=== PATIENT | male | born 1985 | race Caucasian/White ===

== ENCOUNTER 2019-08-30 14:31 | Emergency (ER) | payer SELFPAY ==
[2019-08-30] MEDS ORDERED: ONDANSETRON 4 MG/2 ML VIAL ONE (14:46)
[2019-08-30] MEDS ORDERED: NA CHLORIDE 0.9% 1,000 ML ONE (14:46)
[2019-08-30] MEDS ORDERED: FENTANYL CITR 100 MCG/2 ML ONE ×2 (14:46→15:44)
[2019-08-30 14:56] LABS: Absolute Lymphocytes (CBC) 1.6 K/uL (0.7-4.9); Basophils % 0.8 % (0-1.3); Hematocrit 44.7 % (39.6-49.0); Lymphocytes % 14.5 % (15.3-44.8); MPV 8.4 fL (7.6-11.3)
[2019-08-30 15:08] LABS: Potassium 4.2 mmol/L (3.5-5.1)
--- NOTE | 2019-08-30 15:31 | RAD REPORT ---
EXAM DESCRIPTION: RAD - Tib Fib Right - 08/30/2019 2:51 pm CLINICAL HISTORY: crush injury COMPARISON: No comparisons FINDINGS: No fracture is identified. There is no dislocation or periosteal reaction noted. No acute or suspicious bony finding. No foreign body seen. Anterior soft tissue swelling is present. Calf appears edematous as well. This could be edema, hemorrhage or a combination. No clearly defined hematoma seen. IMPRESSION: No acute bone or joint finding. Prominent soft tissues in the calf and anterior mid leg from edema, hemorrhage or a combination.
--- NOTE | 2019-08-30 15:35 | EDPHYS ---
Physician Documentation [facility] Name: Uriel Olvera Age: 33 yrs Sex: Male : 1985 Arrival Date: 08/30/2019 Time: 14:33 Bed 20 Private MD: ED Physician Darrick Crain HPI: 08/29 15:11 This 33 yrs old Male presents to ER via Ambulatory with complaints of Leg la1 Injury. 15:11 The patient presents with pain, swelling, tenderness. The complaints affect the lateral la1 aspect of right calf, right calf, medial aspect of right calf and right mccollum. Context: The problem was sustained at work, resulted from a crush injury, from a heavy object, from industrial equipment, the patient is not able to bear weight, the patient is not able to ambulate. Onset: The symptoms/episode began/occurred at 14:00. Modifying factors: The symptoms are alleviated by nothing. the symptoms are aggravated by movement, weight bearing, bending knee. Associated signs and symptoms: Pertinent positives: calf tenderness, swelling, weakness. Treatment prior to arrival includes: no previous treatment. Severity of symptoms: At their worst the symptoms were moderate. The patient has not experienced similar symptoms in the past. pt had RLE crushed by 2 [id number] pound pipes. denies any other injuries. Historical: - Allergies: 14:45 Sulfa (Sulfonamide Antibiotics); jl7 - Home Meds: 14:45 None [Active]; jl7 - PMHx: 14:45 None; jl7 - PSHx: 14:45 Left wrist; jl7 - Immunization history: Last tetanus immunization: > 10 years ago. - Social history:: Smoking status: Patient reports the use of cigarette tobacco products, smokes one pack cigarettes per day. ROS: 15:12 Constitutional: Negative for fever, chills, and weight loss, Cardiovascular: Negative la1 for chest pain, palpitations, and edema, Respiratory: Negative for shortness of breath, cough, wheezing, and pleuritic chest pain, Abdomen/GI: Negative for abdominal pain, nausea, vomiting, diarrhea, and constipation, Back: Negative for injury and pain. 15:12 Skin: Negative for injury, rash, and discoloration, Neuro: Negative for headache, weakness, numbness, tingling, and seizure. 15:12 MS/extremity: Positive for pain, swelling, tenderness, of the right calf. Exam: 15:21 Constitutional: This is a well developed, well nourished patient who is awake, alert, la1 and in no acute distress. Head/Face: Normocephalic, atraumatic. Eyes: Pupils equal round and reactive to light, extra-ocular motions intact. Lids and lashes normal. Conjunctiva and sclera are non-icteric and not injected. Cornea within normal limits. Periorbital areas with no swelling, redness, or edema. Chest/axilla: Normal chest wall appearance and motion. Nontender with no deformity. No lesions are appreciated. Cardiovascular: Regular rate and rhythm with a normal S1 and S2. Respiratory: Lungs have equal breath sounds bilaterally, clear to auscultation Abdomen/GI: Soft, non-tender, with normal bowel sounds. Skin: Warm, dry with normal turgor. Normal color with no rashes, no lesions, and no evidence of cellulitis. 15:21 Musculoskeletal/extremity: Extremities: grossly normal except: noted in the right calf: swelling, tenderness, ROM: intact in all extremities, Pulses: noted to be 3+ in the left dorsalis pedis artery, noted to be 2+ in the right dorsalis pedis artery, Sensation intact. Compartment Syndrome exam of affected extremity: severe pain, with passive ROM, weak pulse. 15:21 Musculoskeletal/extremity: significant swelling to RLE. 15:21 Skin: Appearance: Color: normal in color, pink, Temperature: normal temperature, Moisture: normal moisture. Vital Signs: 14:38 BP 136 / 96; Pulse 84; Resp 16 S; Temp 98.4(O); Pulse Ox 95% on R/A; Weight 90.72 kg jl7 (R); Height 6 ft. 1 in. (185.42 cm) (R); Pain 7/10; 14:50 BP 125 / 87; Pulse 81; Resp 16 S; Pulse Ox 95% on R/A; jl7 15:00 BP 120 / 79; Pulse 81; Resp 16 S; Pulse Ox 95% on R/A; jl7 15:15 BP 116 / 85; Pulse 80; Resp 16; Pulse Ox 95% ; Pain 3/10; jl7 15:30 BP 129 / 86; Pulse 68; Resp 16 S; Pulse Ox 95% on R/A; Pain 7/10; jl7 14:38 Body Mass Index 26.39 (90.72 kg, 185.42 cm) jl7 Bethesda Coma Score: 14:38 Eye Response: spontaneous(4). Verbal Response: oriented(5). Motor Response: obeys jl7 commands(6). Total: 15. Trauma Score (Adult): 14:38 Eye Response: spontaneous(1); Verbal Response: oriented(1); Motor Response: obeys jl7 commands(2); Systolic BP: > 89 mm Hg(4); Respiratory Rate: 10 to 29 per min(4); Bethesda Score: 15; Trauma Score: 12 15:00 Eye Response: spontaneous(1); Verbal Response: oriented(1); Motor Response: obeys jl7 commands(2); Systolic BP: > 89 mm Hg(4); Respiratory Rate: 10 to 29 per min(4); Bethesda Score: 15; Trauma Score: 12 MDM: 14:39 Patient medically screened. la1 15:24 ED course: concerned for early compartment syndrome, pain with active and passive ROM, la1 decreased pulse in affected extremity, weakness of dorsiflexion. No paresthesias, no pallor, no decrease in temperature when compared. . 15:32 Data reviewed: vital signs, nurses notes, I have discussed the patient's la1 presentation/case with the attending Emergency Department Physician; and as a result, I will admit patient. Data interpreted: Pulse oximetry: on room air is 95 %. Interpretation: normal. Counseling: I had a detailed discussion with the patient and/or guardian regarding: the historical points, exam findings, and any diagnostic results supporting the discharge/admit diagnosis, radiology results, the need to transfer to another facility, for higher level of care, [facility] does not immediately have the required specialist. Physician consultation:. ED course: Discussed case with Dr. Martinez with ortho at [facility], Informed him of pt condition, due to possible delay with ground transport it was agreed to fly the patient for emergent ortho eval and possible fasciotomy.. 08/29 14:39 Order name: CBC with Diff; Complete Time: 15:26 la1 08/29 14:39 Order name: BMP; Complete Time: 15:26 la1 08/29 14:39 Order name: Tib Fib Right XRAY; Complete Time: 15:41 la1 08/29 14:39 Order name: IV; Complete Time: 14:47 la1 Administered Medications: 14:48 Drug: Zofran (Ondansetron) 4 mg Route: IVP; Site: right antecubital; ss 15:15 Follow up: Response: No adverse reaction jl7 14:50 Drug: NS 0.9% 500 ml Route: IV; Rate: bolus; Site: right antecubital; jl7 15:15 Follow up: Response: No adverse reaction; IV Status: Completed infusion; IV Intake: jl7 500ml 14:50 Drug: fentaNYL (PF) 50 mcg Route: IVP; Site: right subclavian; ss 15:15 Follow up: Response: No adverse reaction; Pain is decreased jl7 15:44 Drug: fentaNYL (PF) 50 mcg Route: IVP; Site: right antecubital; jl7 16:00 Follow up: Response: No adverse reaction; Pain is decreased jl7 15:45 Drug: NS 0.9% 500 ml Route: IV; Rate: bolus; Site: right antecubital; jl7 16:05 Follow up: Response: No adverse reaction; IV Status: Completed infusion; IV Intake: jl7 500ml Disposition: 16:25 Co-signature as Attending Physician, Darrick Crain MD I agree with the assessment and kdr plan of care. Disposition: 08/30/19 15:35 Transfer ordered to [facility]. Diagnosis is Compartment syndrome, unspecified. - Reason for transfer: Higher level of care. - Accepting physician is Dr. Martinez. - Condition is Fair. - Problem is new. - Symptoms are unchanged. Signatures: Dispatcher [employer] EDPR Darrick Crain MD MD [facility] Kathleen Dowd RN RN ss Tay Vaughan, CORPORATE VP ADVERTISING & ONLINE-C CORPORATE VP ADVERTISING & ONLINE-Cla1 Daniel Goss RN RN jl7 Corrections: (The following items were deleted from the chart) 16:12 15:35 08/30/2019 15:35 Transfer ordered to [facility]. Diagnosis is jl7 Compartment syndrome, unspecified. Reason for transfer: Higher level of care. Accepting physician is Dr. Martinez. Condition is Fair. Problem is new. Symptoms are unchanged. la1
--- NOTE | 2019-08-30 15:35 | ER ---
Nurse's Notes [facility] Name: Uriel Olvera Age: 33 yrs Sex: Male : 1985 Arrival Date: 08/30/2019 Time: 14:33 Bed 20 Private MD: Diagnosis: Compartment syndrome, unspecified Presentation: 08/29 14:38 Chief complaint: Patient states: At work, right calf crushed between two 12,000 pound jl7 pipes, swelling noted to right calf. Care prior to arrival: None. Mechanism of Injury: Crush injury from industrial equipment, that weighed approximately 46040 pounds. Extrication was not required. Trauma event details: Injury occurred in the [facility], Injury occurred: in an industrial place of business Injury occurred: August 30, 2019 Injury occurred at: 13:40. 14:38 Acuity: KADEEM 2 jl7 14:38 Method Of Arrival: Ambulatory jl7 14:44 Coronavirus screen: The patient has NOT traveled to a country currently being monitored jl7 by the [facility] within the last 14 days. Proceed with normal triage procedures. The patient has NOT had contact with any known and/or suspected case of coronavirus. Proceed with normal triage procedures. Ebola Screen: No symptoms or risks identified at this time. Initial Sepsis Screen: Does the patient meet any 2 criteria? No. Patient's initial sepsis screen is negative. Does the patient have a suspected source of infection? No. Patient's initial sepsis screen is negative. Risk Assessment: Do you want to hurt yourself or someone else? Patient reports no desire to harm self or others. Onset of symptoms was August 30, 2019 at 13:40. Triage Assessment: 14:45 General: Appears in no apparent distress. uncomfortable, Behavior is calm, cooperative, jl7 appropriate for age. Pain: Complains of pain in right calf Pain currently is 7 out of 10 on a pain scale. Musculoskeletal: Swelling present in right calf. Injury Description: Crush injury sustained to right calf. Trauma Activation: Alert Physician: ED Physician; Name: Tay Vaughan NP; Notified At: 13:33; Arrived At: 13:33 Physician: General Surgeon; Name: ; Notified At: 13:33; Arrived At: Physician: Radiology; Name: Luciana; Notified At: 13:33; Arrived At: 13:35 Physician: Respiratory; Name: ; Notified At: 13:33; Arrived At: Physician: Lab; Name: ; Notified At: 13:33; Arrived At: Historical: - Allergies: 14:45 Sulfa (Sulfonamide Antibiotics); jl7 - Home Meds: 14:45 None [Active]; jl7 - PMHx: 14:45 None; jl7 - PSHx: 14:45 Left wrist; jl7 - Immunization history: Last tetanus immunization: > 10 years ago. - Social history:: Smoking status: Patient reports the use of cigarette tobacco products, smokes one pack cigarettes per day. Screenin:38 Abuse screen: Denies threats or abuse. Denies injuries from another. Tuberculosis jl7 screening: No symptoms or risk factors identified. 14:47 Nutritional screening: No deficits noted. Fall Risk IV access (20 points). Total Laird jl7 Fall Scale indicates No Risk (0-24 pts). Primary Survey: 14:38 NO uncontrolled hemorrhage observed. A: Airway: patent. Breathing/Chest: Respiratory jl7 pattern: regular, Respiratory effort: spontaneous, unlabored, Chest inspection: symmetrical rise and fall of the chest. Circulation: Pulses: palpable right posterior tibial artery, right dorsalis pedis artery, left posterior tibial artery and left dorsalis pedis artery. Skin color: pink. Disability Alert. Exposure/Environment: All clothing and personal items were removed. Forensic evidence collection is not deemed to be indicated at this time. Items placed in patient belonging bag. There is no evidence of uncontrolled external bleeding. Obvious injury(ies) are noted at this time: crush injury to right calf A warming method has been applied: A warm blanket has been provided to the patient. 15:00 Reassessment Airway Airway Patent Breathing/Chest Respiratory pattern Regular jl7 Respiratory effort Spontaneous Unlabored Chest inspection Symmetrical Circulation Color [place] Disability Alert. Assessment: 15:35 Reassessment: Pt reports new pain noted to right foot and reports numbness to right jl7 toes, ERP notified. 16:00 Reassessment: [facility] at bedside to transport pt. jl7 Vital Signs: 14:38 BP 136 / 96; Pulse 84; Resp 16 S; Temp 98.4(O); Pulse Ox 95% on R/A; Weight 90.72 kg jl7 (R); Height 6 ft. 1 in. (185.42 cm) (R); Pain 7/10; 14:50 BP 125 / 87; Pulse 81; Resp 16 S; Pulse Ox 95% on R/A; jl7 15:00 BP 120 / 79; Pulse 81; Resp 16 S; Pulse Ox 95% on R/A; jl7 15:15 BP 116 / 85; Pulse 80; Resp 16; Pulse Ox 95% ; Pain 3/10; jl7 15:30 BP 129 / 86; Pulse 68; Resp 16 S; Pulse Ox 95% on R/A; Pain 7/10; jl7 14:38 Body Mass Index 26.39 (90.72 kg, 185.42 cm) jl7 Pinky Coma Score: 14:38 Eye Response: spontaneous(4). Verbal Response: oriented(5). Motor Response: obeys jl7 commands(6). Total: 15. Trauma Score (Adult): 14:38 Eye Response: spontaneous(1); Verbal Response: oriented(1); Motor Response: obeys jl7 commands(2); Systolic BP: > 89 mm Hg(4); Respiratory Rate: 10 to 29 per min(4); Damascus Score: 15; Trauma Score: 12 15:00 Eye Response: spontaneous(1); Verbal Response: oriented(1); Motor Response: obeys jl7 commands(2); Systolic BP: > 89 mm Hg(4); Respiratory Rate: 10 to 29 per min(4); Damascus Score: 15; Trauma Score: 12 ED Course: 14:33 Patient arrived in ED. mr 14:37 Daniel Goss RN is Primary Nurse. jl7 14:38 Tay Vaughan FNP-C is PHCP. la1 14:38 Darrick Crain MD is Attending Physician. la1 14:38 Patient has correct armband on for positive identification. Placed in gown. Bed in low jl7 position. Call light in reach. Side rails up X2. 14:38 Patient maintains SpO2 saturation greater than 95% on room air. Thermoregulation: warm jl7 blanket given to patient. 14:40 Triage completed. jl7 14:45 Arm band placed on right wrist. jl7 14:46 Initial lab(s) drawn, by me, sent to lab. Inserted saline lock: 18 gauge in right ca1 antecubital area, using aseptic technique. Blood collected. 14:47 Pulse ox on. NIBP on. jl7 14:52 Tib Fib Right XRAY In Process Unspecified. EDMS 16:09 No provider procedures requiring assistance completed. Patient transferred, IV remains jl7 in place. intact, No redness/swelling at site. Administered Medications: 14:48 Drug: Zofran (Ondansetron) 4 mg Route: IVP; Site: right antecubital; ss 15:15 Follow up: Response: No adverse reaction jl7 14:50 Drug: NS 0.9% 500 ml Route: IV; Rate: bolus; Site: right antecubital; jl7 15:15 Follow up: Response: No adverse reaction; IV Status: Completed infusion; IV Intake: jl7 500ml 14:50 Drug: fentaNYL (PF) 50 mcg Route: IVP; Site: right subclavian; ss 15:15 Follow up: Response: No adverse reaction; Pain is decreased jl7 15:44 Drug: fentaNYL (PF) 50 mcg Route: IVP; Site: right antecubital; jl7 16:00 Follow up: Response: No adverse reaction; Pain is decreased jl7 15:45 Drug: NS 0.9% 500 ml Route: IV; Rate: bolus; Site: right antecubital; jl7 16:05 Follow up: Response: No adverse reaction; IV Status: Completed infusion; IV Intake: jl7 500ml Intake: 15:15 IV: 500ml; Total: 500ml. jl7 16:05 IV: 500ml; Total: 1000ml. jl7 16:11 PO: 0ml; IV: 1000ml; Tubes: 0ml (); Total: 2000ml. jl7 Output: 16:11 Urine: 0ml; Gastric: 0ml; Stool: 0; EBL: 0ml; Drainage: 0ml; Other: 0; Total: 0ml. jl7 Outcome: 15:35 ER care complete, transfer ordered by MD. bob 16:09 Transferred by helicopter to [facility], Transfer form completed. X-rays sent jl7 w/ patient. 16:09 Condition: stable 16:09 Discharge instructions given to patient, friend, Instructed on the need for transfer, Demonstrated understanding of instructions. 16:11 Patient's length of stay was not longer than 2 hours. jl7 16:12 Patient left the ED. jl7 Signatures: Dispatcher [employer] SILVIANO Ca ChavarriaKathleen, RN RN ss Tay Vaughan, FRATERNITY ADVISER-C FRATERNITY ADVISER-Cla1 Daniel Goss RN RN jl7 Maria D Perez RN RN ca1 Corrections: (The following items were deleted from the chart) 15:50 14:00 NS 0.9% 500 ml IV at bolus in right antecubital jl7 15:50 14:30 Response: No adverse reaction; IV Status: Completed infusion; IV Intake: 500ml [id number]
[2019-08-30 16:20] VITALS: TEMP 98.4; O2SAT 95
[2019-08-30 16:26] VITALS: BP 129/86
== END 2019-08-30 16:12 | disposition short-term general hospital (02) ==
LOC: ER 14:31
DX: T79.A0XA Compartment syndrome, unspecified, initial encounter (principal); X58.XXXA Exposure to other specified factors, initial encounter; Y93.9 Activity, unspecified; Y92.89 Other specified places as the place of occurrence of the external cause; Y99.8 Other external cause status; F17.210 Nicotine dependence, cigarettes, uncomplicated; Z88.2 Allergy status to sulfonamides
CPT/HCPCS: 36415; 80048; 85025; 96361; 96374; 96375; 99285; J2405; J3010; J7030

== ENCOUNTER 2019-09-01 07:58 | Emergency (ER) | payer SELFPAY ==
--- OUTSIDE RECORDS SUMMARY | 2019-09-01 08:03 | XMS REPORT ---
:1985 Author Organization [facility] Address [address] [place] [address] Care Team Providers Name Role Phone Unavailable Unavailable Unavailable Problems This patient has no known problems. Allergies, Adverse Reactions, Alerts This patient has no known allergies or adverse reactions. Medications This patient has no known medications. Encounters Start End Encounter Admission Attending Care Care Encounter Date/Time Date/Time Type Type Clinicians Facility Department ID 2019-08-30 2019-08-30 Outpatient [facility] [id number] 19:20:00 19:20:00
[2019-09-01] MEDS ORDERED: LIDOCAINE 1% W/EPI 1:100,000 MDV 20 ML VIAL ONE (08:47)
--- NOTE | 2019-09-01 09:21 | ER ---
Nurse's Notes [facility] Name: Uriel Olvera Age: 33 yrs Sex: Male : 1985 Arrival Date: 09/01/2019 Time: 08:01 Bed 19 Private MD: Diagnosis: Sebaceous cyst-, infected Presentation: 08/31 08:31 Chief complaint: Patient states: Swelling to L side of forehead, states, " I have had a ph knot there for a while but this morning it was really swollen and painful", denies fever, N/V. Coronavirus screen: The patient has NOT traveled to a country currently being monitored by the [facility] within the last 14 days. The patient has NOT had contact with any known and/or suspected case of coronavirus. Ebola Screen: No symptoms or risks identified at this time. Initial Sepsis Screen: Does the patient meet any 2 criteria? No. Patient's initial sepsis screen is negative. Does the patient have a suspected source of infection? No. Patient's initial sepsis screen is negative. Risk Assessment: Do you want to hurt yourself or someone else? Patient reports no desire to harm self or others. 08:31 Method Of Arrival: Ambulatory ph 08:31 Acuity: KADEEM 4 ph Historical: - Allergies: 08:35 Sulfa (Sulfonamide Antibiotics); ph - PSHx: 08:35 Left wrist; ph Vital Signs: 08:31 BP 127 / 91; Pulse 79; Resp 18; Temp 97.3; Pulse Ox 99% on R/A; Weight 92.99 kg; Height ph 6 ft. 1 in. (185.42 cm); 08:31 Body Mass Index 27.05 (92.99 kg, 185.42 cm) ph ED Course: 08:01 Patient arrived in ED. ag5 08:19 Luis Dsouza MD is Attending Physician. ps1 08:31 Elvira Vazquez RN is Primary Nurse. ph 08:34 Triage completed. ph Administered Medications: No medications were administered Outcome: 09:20 Discharge ordered by . ps1 09:25 Patient left the ED. ph Signatures: Elvira Vazquez RN RN ph Luis Dsouza MD MD ps1 Ximena Bella ag5
--- NOTE | 2019-09-01 09:21 | EDPHYS ---
Physician Documentation [facility] Name: Uriel Olvera Age: 33 yrs Sex: Male : 1985 Arrival Date: 09/01/2019 Time: 08:01 Bed 19 Private MD: ED Physician Luis Dsouza HPI: 08/31 08:23 This 33 yrs old Male presents to ER via Unassigned with complaints of Knot On ps1 Forehead. 08:23 patient has a infected sebaceous cyst. Onset was a day ago. Had a bump there for years. ps1 Now red and painful, fluctuant. No fever. . Historical: - Allergies: 08:35 Sulfa (Sulfonamide Antibiotics); ph - PSHx: 08:35 Left wrist; ph ROS: 08:23 Constitutional: Negative for fever, chills, and weight loss, Eyes: Negative for injury, ps1 pain, redness, and discharge, ENT: Negative for injury, pain, and discharge, Cardiovascular: Negative for chest pain, palpitations, and edema, Respiratory: Negative for shortness of breath, cough, wheezing, and pleuritic chest pain, Abdomen/GI: Negative for abdominal pain, nausea, vomiting, diarrhea, and constipation, Neuro: Negative for headache, weakness, numbness, tingling, and seizure. 08:23 MS/extremity: Positive for recent crush injury to foot. No new complaints. . Exam: 08:23 Constitutional: This is a well developed, well nourished patient who is awake, alert, ps1 and in no acute distress. Head/Face: Normocephalic, atraumatic. Eyes: Pupils equal round and reactive to light, extra-ocular motions intact. Lids and lashes normal. Conjunctiva and sclera are non-icteric and not injected. 08:23 Cardiovascular: deferred. 08:23 Respiratory: deferred. 08:23 Skin: abscess, that is moderate sized, of the forehead, with fluctuance, with induration, with pointing. Vital Signs: 08:31 BP 127 / 91; Pulse 79; Resp 18; Temp 97.3; Pulse Ox 99% on R/A; Weight 92.99 kg; Height ph 6 ft. 1 in. (185.42 cm); 08:31 Body Mass Index 27.05 (92.99 kg, 185.42 cm) ph Procedures: 09:16 I \T\ D: Incision and drainage was performed for an abscess of the left forehead Prepped ps1 with chlorhexidine. Anesthetized with 5 ml's 1% Lidocaine w/ Epi. Incised with #11 blade. Drained moderate amount purulent fluid. sebum, and cyst wall Packed with none. Dressing: sterile 4x4 gauze, antibiotic ointment the patient tolerated the procedure well. MDM: 08:47 Patient medically screened. ps1 09:16 Differential Diagnosis infected sebaceous cyst. Data reviewed: vital signs, nurses ps1 notes. Counseling: I had a detailed discussion with the patient and/or guardian regarding: the historical points, exam findings, and any diagnostic results supporting the discharge/admit diagnosis, the need for outpatient follow up, to return to the emergency department if symptoms worsen or persist or if there are any questions or concerns that arise at home. ED course: 33 y/o with infected sebaceous cyst. Drained and removed majority of cyst wall as best as possible. Left open without suture. Home with keflex. Return if infection spreads. Good eye movement after procedure. No ptosis or forehead paralysis. . Administered Medications: No medications were administered Disposition: 09/01/19 09:20 Discharged to Home. Impression: Sebaceous cyst - , infected. - Condition is Stable. - Discharge Instructions: Epidermal Cyst, [id number]. - Prescriptions for Keflex 500 mg Oral Capsule - take 1 capsule by ORAL route every 8 hours for 10 days; 30 capsule. Tramadol 50 mg Oral Tablet - take 1 tablet by ORAL route every 8 hours as needed; 12 tablet. - Medication Reconciliation Form, Thank You Letter, Antibiotic Education, Prescription Opioid Use form. - Follow up: Private Physician; When: As needed; Reason: Recheck today's complaints, Continuance of care, Re-evaluation by your physician. Follow up: Emergency Department; When: As needed; Reason: Fever > 102 F, Trouble breathing, Worsening of condition. - Problem is new. - Symptoms have improved. Signatures: Elvira Vazquez, RN RN ph Luis Dsouza MD MD ps1 Corrections: (The following items were deleted from the chart) 09:25 09:20 09/01/2019 09:20 Discharged to Home. Impression: Sebaceous cyst - , infected. ph Condition is Stable. Forms are Medication Reconciliation Form, Thank You Letter, Antibiotic Education, Prescription Opioid Use. Follow up: Private Physician; When: As needed; Reason: Recheck today's complaints, Continuance of care, Re-evaluation by your physician. Follow up: Emergency Department; When: As needed; Reason: Fever > 102 F, Trouble breathing, Worsening of condition. Problem is new. Symptoms have improved. ps1
[2019-09-01 09:36] VITALS: BP 127/91; TEMP 97.3; O2SAT 99
== END 2019-09-01 09:25 | disposition home or self-care (01) ==
LOC: ER 07:58
PROC: 0H91XZZ Drainage of Face Skin, External Approach (ICD-10-PCS; principal; 2019-09-01)
DX: L72.3 Sebaceous cyst (principal); Z88.2 Allergy status to sulfonamides
CPT/HCPCS: 99281